=== PATIENT | female | born 1940 | race Hispanic/Latino ===

== ENCOUNTER 2018-09-06 19:50 | Emergency (ER) | payer MEDICARE ==
[2018-09-06] MEDS ORDERED: Sodium Chloride 0.9% 1,000 ML IV STA (21:23)
[2018-09-06 21:30] LABS: BASO % 0.1 % (0.0-2.0); EOS % 0.1 % (0.0-4.0); LYMPH # 0.5 K/uL (1.0-4.3); LYMPH % 3.2 % (20.0-40.0); MEAN CELL VOLUME 91.2 fl (81.0-99.0); MEAN CORPUSCULAR HEMOGLOBIN 30.3 pg (27.0-31.0); MEAN CORPUSCULAR HGB CONC 33.2 g/dL (33.0-37.0); MEAN PLATELET VOLUME 9.7 fl (7.2-11.7); MONO # 0.3 K/uL (0.0-0.8); MONO % 1.8 % (0.0-10.0); NEUT # 14.7 K/uL (1.8-7.0); NEUT % 94.8 % (50.0-75.0); PLATELET COUNT 265 K/uL (130-400); RBC 3.96 Mil/uL (3.80-5.20); WHITE BLOOD COUNT 15.5 K/uL (4.8-10.8)
[2018-09-06 21:39] LABS: ALB/GLOB RATIO 1.7 (1.0-2.1); ALBUMIN 4.5 g/dL (3.5-5.0); ALT/SGPT 23 U/L (9-52); AST/SGOT 23 U/L (14-36); BLOOD UREA NITROGEN 12 mg/dl (7-17); CALCIUM 9.1 mg/dL (8.4-10.2); GFR NON-AFRICAN AMERICAN > 60
--- NOTE | 2018-09-06 21:50 | ED PDOC ---
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 Patient reports increased stool output, but not diarrhea. In an attempt to treat the weakness, patient has increased salt and fluid intake. Today, she experienced non-bloody, non-bilious vomiting, prompting visit to ED. Patient is concerned that diet changes caused vomiting. She also complains of acidic chest pain that is not pressure like and a dry mouth. Denies fever and abdominal pain. PMD: Dr. Finnegan (in [facility]) Past Medical History Reviewed: Historical Data, Nursing Documentation, Vital Signs Vital Signs: Last Vital Signs Temp 98.3 F 09/06/18 20:25 Pulse 85 09/06/18 20:25 Resp 16 09/06/18 20:25 BP 131/92 H 09/06/18 20:25 Pulse Ox 99 09/06/18 20:25 - Medical History PMH: Anxiety, Depression, Hypercholesterolemia, Hyperlipidemia, Malignancy (colorectal (transanal excision in 2004) and stage III uterine cancer) Other PMH: cystitis, irritable bowel syndrome - Surgical History Surgical History: Tonsillectomy Other surgeries: breast surgery, hysterectomy, bilateral oopherectomy, colonoscopy with biopsies, cataract removal - Family History Family History: States: Hypertension (in sister and paternal grandmother), Other Other Family History: lung cancer (in both parents), uterine cancer, seizures (maternal grandfather) - Allergies Allergies/Adverse Reactions: Allergies Allergy/AdvReac Type Severity Reaction Status Date / Time ciprofloxacin [From Cipro] Allergy RASH Verified 09/06/18 20:27 Iodinated Contrast- Oral and Allergy RASH Verified 09/06/18 20:27 IV Dye shellfish derived Allergy ANAPHYLAXIS Verified 09/06/18 20:27 Review of Systems ROS Statement: Except As Marked, All Systems Reviewed And Found Negative Constitutional: Positive for: Weakness. Negative for: Fever Cardiovascular: Positive for: Chest Pain Gastrointestinal: Positive for: Vomiting. Negative for: Abdominal Pain, Diarrhea Physical Exam - Reviewed Nursing Documentation Reviewed: Yes Vital Signs Reviewed: Yes - Physical Exam Appears: Positive for: No Acute Distress (tired appearing) Head Exam: Positive for: ATRAUMATIC, NORMOCEPHALIC Skin: Positive for: Warm, Dry, Pallor Eye Exam: Positive for: EOMI, Normal appearance, PERRL ENT: Positive for: Other (tacky mucous membranes) Neck: Positive for: Normal, Painless ROM Cardiovascular/Chest: Positive for: Regular Rate, Rhythm. Negative for: Murmur Respiratory: Positive for: Normal Breath Sounds. Negative for: Respiratory Distress Gastrointestinal/Abdominal: Positive for: Soft. Negative for: Tenderness, Mass, Guarding, Rebound Neurological/Psych: Positive for: Awake, Alert, Normal Tone, Oriented (x 3). Negative for: Motor/Sensory Deficits - Laboratory Results Result Diagrams: 09/06/18 21:17 09/06/18 21:17 Lab Results: Total Bilirubin 0.2 mg/dl (0.2-1.3) 09/06/18 21:17 AST 23 U/L (14-36) 09/06/18 21:17 ALT 23 U/L (9-52) 09/06/18 21:17 Alkaline Phosphatase 45 U/L (38-126) 09/06/18 21:17 Total Protein 7.2 G/DL (6.3-8.2) 09/06/18 21:17 Albumin 4.5 g/dL (3.5-5.0) 09/06/18 21:17 Globulin 2.7 gm/dL (2.2-3.9) 09/06/18 21:17 Albumin/Globulin Ratio 1.7 (1.0-2.1) 09/06/18 21:17 - ECG O2 Sat by Pulse Oximetry: 99 (RA) Pulse Ox Interpretation: Normal Medical Decision Making Medical Decision Makin:45 Impression: weakness and vomiting Differential diagnoses include but are not limited to: electrolyte abnormality, dehydration, anemia, gastroenteritis, UTI and thyroid dysfunction Initial Plan: --BNP --CMP --CBC --Lactic acid --Magnesium --Phosphate --TSH --Troponin --Glucose POC --NS IV 1,000 mls --Pepcid 20 mg IVP --Zofran 8 mg IV --Urine cx --UA Labs c/w dehydration (mildly elevated lactic acid and hyponatremia hypochloremia.) Leukocytosis but otherwise no signs of sepsis. 12am Pt vomited despite IVF and IV zofran. IV Reglan ordered along with CT (no contrast due to allergy) due to patient's extensive of abdominal surgeries. 1215am Endorsed to Dr Oden pending CT, reassessment and final disposition. Scribe Attestation: Documented by Danica Laura, acting as a scribe for Jen Mccoy MD Provider Scribe Attestation: All medical record entries made by the Scribe were at my direction and personally dictated by me. I have reviewed the chart and agree that the record accurately reflects my personal performance of the history, physical exam, medical decision making, and the department course for this patient. I have also personally directed, reviewed, and agree with the discharge instructions and disposition Disposition - Clinical Impression Clinical Impression: Intractable vomiting - Disposition Disposition Time: 00:15 Condition: FAIR
[2018-09-06 22:35] LABS: URINE BACTERIA RARE (<OCC); URINE BILIRUBIN NEGATIVE (NEGATIVE); URINE BLOOD NEGATIVE (NEGATIVE); URINE CLARITY CLEAR (Clear); URINE COLOR STRAW (YELLOW); URINE GLUCOSE (UA) NEG (NEGATIVE); URINE LEUKOCYTE ESTERASE NEG Leu/uL (Negative); URINE PROTEIN NEGATIVE (NEGATIVE); URINE UROBILINOGEN 0.2-1.0 mg/dL (0.2-1.0)
[2018-09-06 22:49] LABS: BANDS 3 % (0-2); LYMPHOCYTE 6 % (20-50); MONOCYTE 3 % (0-10); NEUTROPHIL 88 % (42-75); TOTAL CELLS COUNTED 100
[2018-09-06 22:50] LABS: ANISOCYTOSIS SLIGHT; HYPOCHROMIC SLIGHT; PLATELET ESTIMATE NORMAL (NORMAL)
[2018-09-07] MEDS ORDERED: DiphenhydrAMINE 50 mg/ml Inj IVP STA (00:28)
--- NOTE | 2018-09-07 00:43 | ED PDOC ---
- Laboratory Results Result Diagrams: 09/06/18 21:17 09/06/18 21:17 Lab Results: Troponin I < 0.0120 ng/mL (0.00-0.120) 09/06/18 21: Total Bilirubin 0.2 mg/dl (0.2-1.3) 09/06/18 21:17 AST 23 U/L (14-36) 09/06/18 21: ALT 23 U/L (9-52) 09/06/18 21: Alkaline Phosphatase 45 U/L (38-126) 09/06/18 21: Total Protein 7.2 G/DL (6.3-8.2) 09/06/18 21: Albumin 4.5 g/dL (3.5-5.0) 09/06/18 21: Globulin 2.7 gm/dL (2.2-3.9) 09/06/18 21: Albumin/Globulin Ratio 1.7 (1.0-2.1) 09/06/18 21: Urine Color Straw (YELLOW) 09/06/18 22:25 Urine Clarity Clear (Clear) 09/06/18 22:25 Urine pH 7.0 (5.0-8.0) 09/06/18 22:25 Ur Specific [place] 1.008 (1.003-1.030) 09/06/18 22:25 Urine Protein Negative mg/dL (NEGATIVE) 09/06/18 22:25 Urine Glucose (UA) Neg mg/dL (NEGATIVE) 09/06/18 22:25 Urine Ketones Negative mg/dL (NEGATIVE) 09/06/18 22:25 Urine Blood Negative (NEGATIVE) 09/06/18 22:25 Urine Nitrate Negative (NEGATIVE) 09/06/18 22:25 Urine Bilirubin Negative (NEGATIVE) 09/06/18 22:25 Urine Urobilinogen 0.2-1.0 mg/dL (0.2-1.0) 09/06/18 22:25 Ur Leukocyte Esterase Neg John Paul/uL (Negative) 09/06/18 22:25 Urine RBC (Auto) 1 /hpf (0-3) 09/06/18 22:25 Urine Microscopic WBC < 1 /hpf (0-5) 09/06/18 22:25 Urine Bacteria Rare (<OCC) 09/06/18 22:25 - ECG O2 Sat by Pulse Oximetry: 99 (RA) Pulse Ox Interpretation: Normal Medical Decision Making Medical Decision Makin:00 Patient endorsed to this provider by Dr. Mccoy at bedside pending CT, labs, re-evaluation and final disposition. 01:33 CT Abd Pelvis FINDINGS: The visualized lung bases are unremarkable. Scattered well-defined hypodense hepatic lesions with largest measuring 3.5 cm, probably cysts. Moderate partial small bowel obstruction. Transition zone in the right lower quadrant. Normal unenhanced liver. Normal gallbladder and extrahepatic biliary system. Normal unenhanced spleen. Normal pancreas. Normal bilateral adrenal glands. Normal size of the right kidney. There is no right renal mass. There are no right renal calculi. There is no right hydronephrosis. Normal visualized right ureter. Normal size of the left kidney. There is no left renal mass. There are no left renal calculi. There is no left hydronephrosis. Normal visualized left ureter. Normal colon. The appendix is visualized and appears normal. There is no demonstrated peritoneal fluid. Normal abdominal aorta. Normal inferior vena cava. Normal retroperitoneum. Normal urinary bladder. There is no pelvic mass lesion or lymphadenopathy. Th ere is no pelvic fluid. Normal abdominal wall. Mild osteopenia. Grade 1 anterolisthesis of L4 on L5. Grade 1 anterolisthesis of L5 on S1. IMPRESSION: Moderate partial small bowel obstruction. Transition zone in the right lower quadrant. No evidence of bowel perforation or pneumatosis intestinalis. 02:10 Provider explained results to patient at length. Patient reports she has experie nced recurrent small bowel obstructions. Patient states she prefers to sign out against medical advice and follow up at [facility] where she is a patient. CT and lab results provided for patient to take with her. Scribe Attestation: Documented by Danica Laura, acting as a scribe Akhil Oden MD Provider Scribe Attestation: All medical record entries made by the Scribe were at my direction and personally dictated by me. I have reviewed the chart and agree that the record accurately reflects my personal performance of the history, physical exam, medical decision making, and the department course for this patient. I have also personally directed, reviewed, and agree with the discharge instructions and disposition Disposition - Clinical Impression Clinical Impression: Small bowel obstruction, Left against medical advice - POA Present On Arrival: None - Disposition Disposition: AGAINST MEDICAL ADVICE Disposition Time: 02:11 Condition: FAIR Instructions: Small Bowel Obstruction, Leaving Against Medical Advice Forms: [employer] (Pashto) Against Medical Advice - AMA Patient Left Against Medical Advice: The patient declines admission to the hospital and wishes to leave the Emergency Department. This action is against my medical advice. This decision was made with informed refusal. The patient was told that admission to the hospital is necessary. Explanation of the reasons why were discussed. The risks of leaving were explained to the patient and include, but are not limited to, worsening of known or currently unknown conditions, permanent disability and from undiagnosed or untreated conditions. The patient has the capacity to make this informed decision and understands my explanation of the current medical problem and risks of leaving. The patient voluntarily accepts these risks and signed an AMA form documenting our conversation. The patient was given the opportunity to ask questions and reconsider. The patient was encouraged to return to the Emergency Department at any time for further care.
[2018-09-07] MEDS ORDERED: DiphenhydrAMINE 50 mg/ml Inj ONE (00:48)
[2018-09-07 02:30] VITALS: BP 146/72; PULSE 83; RESP 17; TEMP 98.8; O2SAT 98
--- NOTE | 2018-09-07 08:59 | CARD ---
APPROVED REPORT Date of service: 09/06/2018 EKG Measurement Heart [id number] <Conclusion> Normal sinus rhythm Left axis deviation Abnormal ECG
--- NOTE | 2018-09-07 11:13 | CT ---
Date of service: 09/07/2018 PROCEDURE: CT Abdomen and Pelvis without intravenous contrast HISTORY: intractable vomiting COMPARISON: None. TECHNIQUE: Without contrast.. Contrast dose: Radiation dose: Total exam DLP = 276.74 mGy-cm. This CT exam was performed using one or more of the following dose reduction techniques: Automated exposure control, adjustment of the mA and/or kV according to patient size, and/or use of iterative reconstruction technique. FINDINGS: LOWER THORAX: Unremarkable. LIVER: Unremarkable. No gross lesion or ductal dilatation. Multiple simple cysts are seen throughout the liver. GALLBLADDER AND BILE DUCTS: Unremarkable. PANCREAS: Unremarkable. No gross lesion or ductal dilatation. SPLEEN: Unremarkable. ADRENALS: Unremarkable. No mass. KIDNEYS AND URETERS: Unremarkable. No hydronephrosis. No solid mass. VASCULATURE: Unremarkable. No aortic aneurysm. No aortic atherosclerotic calcification or mural plaque present. BOWEL: Moderately dilated loops of small bowel are seen in the pelvis. Findings are consistent with partial small bowel obstruction. Transition point appears to be in the right lower quadrant APPENDIX: Unremarkable. Normal appendix. PERITONEUM: Unremarkable. No free fluid. No free air. LYMPH NODES: Unremarkable. No enlarged lymph nodes. BLADDER: Unremarkable. REPRODUCTIVE: Unremarkable. BONES: Severe disc degeneration at L4-5 and L5-S1 OTHER FINDINGS: The report concurs with the preliminary [facility] report IMPRESSION: Moderately dilated loops of small bowel are seen in the pelvis. Findings are consistent with partial small bowel obstruction. Transition point appears to be in the right lower quadrant
== END 2018-09-07 02:52 | disposition left against medical advice (07) ==
LOC: H.ER 19:50 → UNDOADMIN 09-07 01:36 → H.ERHOLD 09-07 01:36 → UNDODISIN 09-07 02:52
DX: R11.10 Vomiting, unspecified (principal); K56.609 Unspecified intestinal obstruction, unspecified as to partial versus complete obstruction
CPT/HCPCS: 74176; 80053; 81003; 82948; 83605; 83735; 84100; 84443; 84484; 85025; 86850; 86900; 87086; 87181; 93005; 96361; 96374; 96375; 99284; J1200; J2405; J2765; J7030; J7042